=== PATIENT | female | born 1970 | race Caucasian/White ===

== ENCOUNTER → 2020-09-29 | Outpatient (REF) | payer OTHER ==
[2020-09-29 20:36] LABS: HEPATITIS B SURFACE ANTIGEN NEGATIVE (NEGATIVE); HEPATITIS C VIRUS ABY INDEX 0.1 INDEX (<0.8); HIV 1&2 SCREEN CENTAUR NEGATIVE (NEGATIVE)
== END ==
LOC: M LAB REF 18:22
PROVIDERS: ATTEND Physician Assistant
DX: Z11.59 Encounter for screening for other viral diseases (principal)

== ENCOUNTER → 2024-08-28 | Outpatient (CLI) | payer OTHER ==
[~2024-08-28] MED LIST: ARIP20TA51 PO; BUDE32SU6; HYDR-3363 PO; INCR1INH INH; LAMI1TAB8 PO; LAMO150T3 PO; LEVOTAB10 PO; LEXA5TAB13 PO; MONT-5 PO; MONT10TA97 PO; OLAN15TA69 PO; OMEP40CA5 PO; OYST1TAB PO; PRAZ2CAP PO; PRAZ5CAP PO; PREM0.452 PO; SERO1TAB2 PO; TEMA22.5 PO; TEMA30CA PO; VITA100093 PO; ZYPR15TA PO
== END ==
LOC: M SLEEP HO 10:24 → MERGE 11:00
PROVIDERS: ATTEND Internal Medicine Critical Care Medicine
DX: G47.33 Obstructive sleep apnea (adult) (pediatric) (principal)

== ENCOUNTER → 2025-09-17 | Outpatient (CLI) | payer BC, OTHER ==
[~2025-09-17] MED LIST changes: -BUDE32SU6; +OLAN15TA PO; -OLAN15TA69 PO; +[UNRECOGNIZED DRUG - CODE]
[2025-09-17 13:15] LABS: ALT/SGPT 23 U/L (7.0-40); AST/SGOT 19 U/L (<34); CALCIUM LEVEL 8.8 MG/DL (8.5-10.1); CARBON DIOXIDE LEVEL 29 MMOL/L (20-31); CHLORIDE LEVEL 99 MMOL/L (98-107); CHOLESTEROL LEVEL 144 MG/DL (<200); CHOLESTEROL RISK RATIO 2.73 (<5); CREATININE FOR GFR 0.62 MG/DL (0.55-1.30); GLOMERULAR FILTRATION RATE > 90.0 (>51); LDL CHOLESTEROL 66.4 MG/DL (<100); MAGNESIUM LEVEL 1.7 MG/DL (1.8-2.4); NON-HDL-C 91.4 MG/DL; POTASSIUM SERUM 3.5 MMOL/L (3.5-5.1); SODIUM LEVEL 139 MMOL/L (136-145); TRIGLYCERIDES LEVEL 125 MG/DL (<150)
[2025-09-17 13:18] LABS: TOTAL 25(OH) VITAMIN D 42.0 NG/ML (20.0-100.0)
== END ==
LOC: M WUC 09:12
PROVIDERS: ATTEND Nurse Practitioner Family
DX: E55.9 Vitamin D deficiency, unspecified (principal); I10 Essential (primary) hypertension; E78.5 Hyperlipidemia, unspecified